=== PATIENT | female | born 1985 | race Caucasian/White ===

== ENCOUNTER 2024-09-12 10:19 | Day surgery (SDC) | payer OTHER, SELFPAY ==
[2024-09-12] VITALS (14 sets, daily range): BP systolic 108–146; BP diastolic 69–99; BMI 42.0
--- NOTE | 2024-09-12 06:59 | ED.GENMED ---
History of Present Illness
General
Chief Complaint: Abdominal Pain
Source: patient
Exam Limitations: none
Time Seen by Provider: 09/12/24 06:54
History of Present Illness
History of Present Illness:
See MDM
Past History
Past History
ED Past Medical History: Other (Previous cleft palate surgery )
ED Past Surgical History: None
Social History
Tobacco: Non-smoker
Alcohol: Occasional
Personal: Single
Living: alone
Employment: Employed (desk work)
Family History
Family History: Other (Melanoma )
Phy Exam
Physical Exam
Physical Exam:
See MDM
Course
Orders/Labs/Results
Orders:
Orders
09/12/24 06:49
IV Insert/Care/Rem.- Treatment PRN
Test Result ONCE
09/12/24 06:57
Complete Blood Count/With Diff Urgent
Comprehensive Metabolic Panel Urgent
HCG, Serum Qualitative Screen Urgent
Comment: Notify provider if positive test present
Lipase Urgent
09/12/24 06:58
0.9% Sodium Chloride 1000 ml [Nss] 1,000 ml IV BOLUS
Ketorolac [Toradol] 30 mg IV NOW STA
Ondansetron Injectable [Zofran] 4 mg IV NOW STA
09/12/24 06:59
US Abdomen Complete/Upper Urgent
Comment:
Reason For Exam: RUQ pain
09/12/24 08:17
Consult Surgery [SURGICAL CONSULT] Urgent
Consulting Provider: Jossue Guadarrama
Was physician already notified: Yes
09/12/24 08:39
Zosyn 3.375 grams IVPB NOW Piperacillin/Tazo 3.375 Gram [Zosyn] 3.375 gram in 50 ml IV NOW
Abnormal Lab Results
09/12/24
06:57
Absolute Neuts (auto) 7.2 H 10^3/uL
(1.4-6.5)
Absolute Lymphs (auto) 1.1 L 10^3/uL
(1.2-3.4)
Neutrophils % 80.9 H %
(42.2-75.2)
Lymphocytes % 12.8 L %
(20.5-51.1)
Glucose 130 H mg/dl
(70-99)
AST 230 H U/L
(14-36)
ALT 151 H U/L
(0-35)
09/12/24 06:57
09/12/24 06:57
Vital Signs
Initial and Last Documented VS:
Initial Vital Signs
Temp Pulse Resp BP Pulse Ox
97.8 F 95 20 138/99 100
09/12/24 06:29 09/12/24 06:29 09/12/24 06:29 09/12/24 06:29 09/12/24 06:29
Last Documented Vital Signs
Temp Pulse Resp BP Pulse Ox
97.8 F 95 20 138/99 100
09/12/24 06:29 09/12/24 06:29 09/12/24 06:29 09/12/24 06:29 09/12/24 06:29
MDM/Problems Addressed
Differential Diagnosis Includes:
HPI and MDM Narrative:
39-year-old female presenting with right upper quadrant abdominal pain since yesterday. Patient noticed it around 8 PM. Her last meal was at noon. This is associated with nausea. Patient states she has had stomach issues ever since the of
her child 7 months ago but states it is never been as bad as this.
On exam, she does have tenderness of the right upper quadrant. She also complains of back pain. Will give Toradol. She is not breast-feeding. Will obtain ultrasound rule out bladder pathology. If negative, will consider CT to rule out kidney
stone
Physical exam
General: Mildly uncomfortable
HEENT: protecting airway. Dry mucous membranes
Neck: appears supple
CV: No evidence of cyanosis
Resp: No accessory muscle use
Abd: Non-distended. Point tenderness to right upper. No rebound
Extremities: No deformities
Neuro: alert
Psych: Normal affect
Skin: Intact
Problems Addressed including Acute and Chronic Conditions affecting care:
1. Right upper quadrant abdominal pain
Acuity: acute
Prognosis: stable
Details: Given location of pain, will obtain ultrasound to rule out gallbladder pathology. Will give dose of Toradol.
Updates
Patient found to have elevated LFTs. No fever and white blood cell count within normal limits. Ultrasound does show stones but no gallbladder wall thickening. Will discuss case with surgery
8:40 AM surgery at bedside and consented patient for cholecystectomy. Will give dose of Zosyn
Differential Diagnosis (but not limited to): Gallstones, colitis, kidney stone
Testing considered: CT abdomen/pelvis but will obtain right upper quadrant ultrasound first
Drug therapy (if applicable): OTC meds, please see d/c instruction regarding Rx drugs
Amount and/or Complexity of Data Reviewed
Clinical info obtained from: Patient
External data reviewed: N/A
Labs I independently reviewed (but not limited to): Elevated LFTs
Radiology: Ultrasound report reviewed
Pulse Ox: not hypoxic
EKG independently reviewed: N/A
Recruiting Intern: N/A
Critical Care: N/A
Risk of Complication:
Social Determinants of health: Good social support
Discussed with other providers: General Surgeon
Escalation of Care includes Admit/Obs: Given the concern for acute calculus cholecystitis, will admit for surgical fixation
Occasional wrong word or 'sound a like' substitutions may have occurred due to the inherent limitations of voice recognition software. Read the chart carefully and recognize, using context, where substitutions have occurred.
*Critical Care Note
Total Time (30-74mins, 75-104mins- exclusive of procedures): Not Applicable
ED Attending Note
-
Portions of this chart may have been created with voice recognition software.� Occasional wrong word or��sound alike� substitutions may have occurred due to the inherent limitations of voice recognition software.
Discharge Plan
Departure
Patient Disposition: Admit
Date of Disposition: 09/12/24
Time of Disposition: 08:41
Admit to: OR
Presentation/result/management discussed w/ accepting MD/DO: General Surgeon
Discharge Problem:
Acute calculous cholecystitis
Prescriptions:
No Action
cephalexin 500 MG capsule
500 mg PO QID Qty: 40 0RF
cyclobenzaprine 10 MG tablet
10 mg PO TIDPRN PRN (Reason: back spasms) Qty: 30 0RF
ibuprofen 600 MG tablet
600 mg PO TIDPRN PRN (Reason: pain) Qty: 30 0RF
Referrals:
UNKNOWN - PT DOES,NOT KNOW [Family Provider] -
Interventions
Interventions:
*Risk Screen - Suicide Last Done: 09/12/24 06:29
*General Assessment Last Done: 09/12/24 07:27
*Neglect/Abuse Screening Last Done: 09/12/24 07:27
ED- Fall Risk Assessment Last Done: 09/12/24 07:27
*ED COVID-19 Vaccine History Last Done: 09/12/24 07:27
SC-Qdsrae-[facility] Assessment Last Done: 09/12/24 07:27
Discharge Date and Time
Print Language: MARSHALLESE
[2024-09-12] MEDS: NSS 1000 IV (07:02)
[2024-09-12] MEDS: ZOFRAN 4 MG IV (07:04)
[2024-09-12] MEDS: TORADOL 30 MG IV (07:05)
[2024-09-12 07:18] LABS: % Basophils 0.5 % (0-2); % Eosinophils 0.2 % (0-6); % Immature Granulocytes 0.5 % (0-0.5); % Lymphocytes 12.8 % (20.5-51.1); % Monocytes 5.1 % (1.7-9.3); % Neutrophils 80.9 % (42.2-75.2); Absolute Lymphocytes 1.1 10^3/uL (1.2-3.4); Absolute Monocytes 0.5 10^3/uL (0.1-0.6); Absolute Neutrophils 7.2 10^3/uL (1.4-6.5); Hemoglobin 12.9 g/dL (12.0-16.0); Mean Corp Hgb Conc. 33.1 g/dL (33.0-37.0); Mean Corpuscular Hgb 28.5 pg (27.0-31.0); Mean Corpuscular Volume 86.3 fL (81.0-99.0); Nucleated Red Blood Cells % 0 %; Platelet Count 388 10^3/uL (130-400); Red Blood Cell Count 4.52 10^6/uL (4.20-5.40); Red Cell Dist. Width 13.3 % (11.5-14.5); White Blood Cell Count 8.9 10^3/uL (4.8-10.8)
[2024-09-12 07:21] LABS: HCG, Serum Qualitative Screen Negative
[2024-09-12 07:27] LABS: ALT (SGPT) 151 U/L (0-35); AST (SGOT) 230 U/L (14-36); Albumin 4.7 g/dl (3.5-5.0); Alkaline Phosphatase 70 U/L (38-126); Blood Urea Nitrogen 12 mg/dl (7-17); Calcium 9.6 mg/dl (8.4-10.2); Carbon Dioxide 23 mmol/L (22-30); Chloride 106 mmol/L (98-107); Glucose 130 mg/dl (70-99); Lipase 63 U/L (23-300); Potassium 4.6 mmol/L (3.5-5.1); Sodium 142 mmol/L (135-145); Total Protein 7.4 g/dl (6.3-8.2); eGFR > 60.00
--- NOTE | 2024-09-12 08:24 | HPS.HSE ---
Family Physician
<ARTUR Almaguer - Last Filed: 09/12/24 08:34>
-
Family Physician: NOT KNOW UNKNOWN - PT DOES
Chief Complaint
<ARTUR Almaguer - Last Filed: 09/12/24 08:34>
-
RUQ pain
History of Present Illness
Ms Mcqueen is a 39 yo female with a h/o x3 who presents with RUQ pain which began around 8pm last night and persisted through the night accompanied by nausea and vomiting. She notes that over the past 6 months or so, she has had similar
episodes also accompanied by loose acholic stools but they usually resolved over the course of a few hours unlike this current episode. She denies jaundice with these prior episodes. On exam, the RUQ is tender to light palpation which she notes was
worse during the US done in the ED. She reports improvement in pain since receiving analgesics in the ED but notes the pain is still present in her back. She denies active nausea. She denies nausea or vomiting.
Medical History
<ARTUR Almaguer - Last Filed: 09/12/24 08:34>
Past Medical History
Past Medical History: Reports None
Past Surgical History: Reports (x3)
Social History
Tobacco: Non-smoker
Alcohol: None
Family History
Family History: Not pertinent
Allergies / Home Medications
Allergies reflects when Allergies were last updated in [facility].
Home Medications with original date entered in [facility]
Allergy/Medication List:
Patient Allergies
Allergy/AdvReac Type Severity Reaction Status Date / Time
No Known Allergies Allergy Verified 09/12/24 06:28
Not on any home meds
Review of Systems
<ARTUR Almaguer - Last Filed: 09/12/24 08:34>
-
History Source: Patient
A 12 point ROS was completed and negative except as noted: Yes
Physical Exam
<ARTUR Almaguer - Last Filed: 09/12/24 08:34>
Vital Signs
Vital Signs
Temp Pulse Resp BP Pulse Ox
97.8 F 95 20 138/99 100
09/12/24 06:29 09/12/24 06:29 09/12/24 06:29 09/12/24 06:29 09/12/24 06:29
Physical Exam
General: Well Developed and No Apparent Distress
HEENT: Moist mucous membranes
Respiratory: Non Labored Respirations
GI: Soft, Non Distended and Tender (RUQ (+cornejo's))
Skin: Warm and Dry
Neuro: Awake, Alert and AO x 3
Psych: Calm
Laboratory Results
<ARTUR Almaguer - Last Filed: 09/12/24 08:34>
-
09/12/24 06:57
09/12/24 06:57
Laboratory Results
Total Bilirubin 1.0 mg/dl (0.2-1.3) 09/12/24 06:57
AST 230 U/L (14-36) H 09/12/24 06:57
ALT 151 U/L (0-35) H 09/12/24 06:57
Alkaline Phosphatase 70 U/L (38-126) 09/12/24 06:57
Lipase 63 U/L (23-300) 09/12/24 06:57
Data Reviewed
<ARTUR Almaguer - Last Filed: 09/12/24 08:34>
-
Ultrasound: Image Personally Visualized and interpreted (Relative prominent size gallbladder containing stones, without wall thickening. Patient reported pain during US imaging.), Report Reviewed by me, Discussed with Physician, Discussed with
Patient and Discussed with Family
Lab Data: Labs Reviewed by me, Discussed with Physician and Discussed with Patient
Old Records: Reviewed
Impression/Plan
<ARTUR Almaguer - Last Filed: 09/12/24 08:34>
-
IMPRESSION:
39 yo female with symptoms of biliary colic over the past 6 months presenting with persistent RUQ pain with n/v. US imaging with cholelithiasis although no wall thickening noted. RUQ remains tender on exam raising concern for acute calculous
cholecystitis. AFVSS. No leukocytosis. LFT's WNL.
PLAN:
Keep NPO
Start ABX with IV Zosyn
IVF while NPO
Plan OR tentatively later today for lap doyle
SCDs for VTE ppx
<Jossue Guadarrama MD - Last Filed: 09/12/24 08:48>
-
IMPRESSION:
39 yo female with symptoms of biliary colic over the past 6 months presenting with persistent RUQ pain with n/v. US imaging with cholelithiasis although no wall thickening noted. RUQ remains tender on exam raising concern for acute calculous
cholecystitis. AFVSS. No leukocytosis. LFT's WNL.
PLAN:
Keep NPO
Start ABX with IV Zosyn
IVF while NPO
Plan OR tentatively later today for lap doyle
SCDs for VTE ppx
I saw and examined the patient independently.
The Settlement Technician's note was reviewed and I agree with the note, assessment and plan except where noted below.
Comment: This is a 39-year-old female 7 months who presents with 6-month history of postprandial right upper quadrant pain. Typically intermittent however her episode that began yesterday has been consistent and progressively worsening.
The patient denies Fever, Chest Pain, Shortness Of Breath, Nausea, Vomiting, changes in urinary and bowel habits, unintentional weight loss, jaundice, icterus, but does endorse occasional acholic stools.
Will plan for a laparoscopic cholecystectomy in the OR today.
Admit to general surgery
N.p.o., IV fluids, IV antibiotics.
Possible discharge home later today versus tomorrow pending clinical course.
Risks/Benefits/Alternatives, expected postoperative course and possible complications (bleeding, infection, injury to surrounding structures, acute/chronic pain) discussed at length. Patient wishes to proceed with surgery. All questions answered.
Consent obtained.
I spent 60 minutes in total for the care of this patient today including direct patient care and counseling, reviewing labs, imaging, coordination of care, as well as documentation.
[2024-09-12] MEDS: ZOSYN 50 IV ×3 (08:53→20:12)
--- NOTE | 2024-09-12 09:07 | W.SUR.PREOP ---
Pre-Operative Surgical Note
-
I have examined this patient prior to the performance of the scheduled procedure.
The patient's condition is unchanged from the time of the current History and
Physical and the patient is able to undergo the scheduled procedure.
--- NOTE | 2024-09-12 12:16 | W.IMMPOSTOP ---
Surgical Immed Post Op Note
-
Primary Surgeon: Jossue Guadarrama MD
Assisting Surgeon: None
Pre-op Diagnosis: Acute cholecystitis
Post-op Diagnosis: Acute cholecystitis, fatty liver disease
Procedure Performed:
1. Laparoscopic cholecystectomy with cholangiogram
2. Liver biopsy
Anesthesia Type: General
Specimen / Cultures:
Gallbladder and contents, liver biopsy
Estimated Blood Loss: 11 cc
Complications: None
Operative Findings: Distended gallbladder with minimal flimsy adhesions over the infundibulum. Critical view of safety obtained, dilated cystic duct which was ligated proximally using an 0 silk suture before a distal duct anatomy. The dilated
cystic duct was filled with several stones 13 of which were removed prior to an attempted cholangiogram which had to be aborted due to technical difficulty with the patient bed, however we were able to flush the duct without any issue. The duct
was then ligated with a clip followed by a 0 PDS Endoloop. The gallbladder and all 13 stones were removed. A liver biopsy of segment 4B was taken due to grossly fatty liver disease. The biopsy site was cauterized and a small piece of Surgicel was
placed to assist with hemostasis.
POST OP PLAN:
Imaging: None
Labs: Routine AM, if there is any concern for elevated bilirubin or liver enzymes may consider an MRCP to rule out choledocholithiasis.
Diet: Advance to low-fat as tolerated
Analgesia: Tylenol 650mg q6 Yusef, Mariajose 5mg q6 PRN, Dilaudid 0.5mg q2h PRN
Neuro/vascular checks: q4h
AC/AP: Hold Therapeutic AC, Ok for DVT PPx
Activity: Ad Lara
Wound/Incisions/Drains: Routine
Abx: will continue while admitted
Dispo: RNF, anticipate discharge home tomorrow
--- NOTE | 2024-09-12 12:21 | OR.RPT ---
Operative Report
Operative Report
Patient Name: Rani Mcqueen
: 1985
Date of Operation: 09/12/2024
Preoperative Diagnosis: Acute cholecystitis
Postoperative Diagnosis: Acute cholecystitis, fatty liver disease
Procedure(s):
1. Laparoscopic Cholecystectomy with Cholangiogram
2. Liver biopsy
Surgeon(s):
Dr. Guadarrama
Product Safety Expert(s):
JANI Connell
Anesthesia: General
Estimated Blood Loss: 11 cc
Urine Output: None
Drains/Lines/Implants: None
Specimens:
1. Gallbladder and contents
2. Liver biopsy
HPI/Surgical Indications:
This is a 39-year-old female who presents with a 1 day history of right upper quadrant abdominal pain, in the setting of similar pain over the past several months since giving . Exam, labs and imaging are consistent with early acute
cholecystitis. Risks/Benefits/Alternatives were discussed at length, and the patient agreed to proceed with surgery.
Operative Findings:
The patient had a significant diastases recti, which altered our port placement slightly. Distended gallbladder with minimal flimsy adhesions over the infundibulum. Critical view of safety obtained, dilated cystic duct which was ligated proximally
using an 0 silk suture before a distal duct anatomy. The dilated cystic duct was filled with several stones 13 of which were removed prior to an attempted cholangiogram which had to be aborted due to technical difficulty with the patient bed,
however we were able to flush the duct without any issue. The duct was then ligated with a clip followed by a 0 PDS Endoloop. The gallbladder and all 13 stones were removed. A liver biopsy of segment 4B was taken due to grossly fatty liver
disease. The biopsy site was cauterized and a small piece of Surgicel was placed to assist with hemostasis.
Procedure Description:
The patient was brought to the Operating Room and placed in the supine position with arms out and on a footboard. Following uneventful induction of general endotracheal anesthesia, an orogastric tube was placed. The abdomen was prepped and draped
in the usual sterile fashion. A timeout was performed confirming the procedure, consent, and that IV antibiotics were infused and sequential compression devices were confirmed to be on. The abdomen was entered using a left subcostal Veress technique
of which required a single pass followed by a 5 mm right upper quadrant Optiview trocar taking care to come lateral enough to go through muscle and avoid her diastases recti. Pneumoperitoneum to 12 mmHg pressure was obtained without difficulty and
we confirmed that no injury had occurred during our entry. The patient was positioned in reverse Trendelenberg and rotated with the right side up slightly. Two 5mm trocars were then placed along the right subcostal margin, followed by a 12 mm port
in the epigastrium. The gallbladder was noticeably distended and a locking grasping forceps was placed on the fundus of the gallbladder where it was then retracted cephalad and to the right. Using appropriate grasping instruments, the peritoneum
overlying the triangle of Calot was incised and extended superiorly on both the anterior and posterior gallbladder goncalves. The infundibulum was dissected off the cystic plate. The cystic triangle was dissected until a critical view of safety was
achieved. The cystic artery was medialized, dissected and controlled with 2 proximal clips and 1 distal and divided. The cystic duct/gallbladder junction in turn was identified, dissected circumferentially but was notably dilated so controlled with
a 0 silk tie. A ductotomy was made but the dilated cystic duct was filled with multiple small dark brown gallstones. 13 stones were removed and the duct appeared empty. A cholangiocatheter on an Mccray clamp was inserted into the cystic duct. A
C-arm was draped and brought into the field. An intra-operative cholangiogram was attempted however we discovered that the operating room table was malpositioned and as it could not slide the bed up or down we were unable to get a good view of the
relevant anatomy with the C-arm. As such the cholangiogram was aborted. The cholangiocatheter was removed and we once again carefully milked the cystic duct to ensure there was no stones left behind. There was some backflow of bile which was
reassuring. The distal cystic duct was then clipped proximally and distally and divided. The cystic duct stump was then ligated with a 0 PDS Endoloop. After ensuring both the artery and duct were divided, the gallbladder was freed from the liver
using electrocautery. There was no spillage of bile or stones. The gallbladder bed was inspected and excellent hemostasis was obtained. We then turned our attention to the liver which was notably enlarged and impeded with our retraction of the
gallbladder due to her fatty liver disease. A self pay representative sample of the liver was biopsied from segment 4B and hemostasis was achieved with the help of electrocautery and a 2 x 3 inch piece of Surgicel which was left in place. The gallbladder,
all 13 gallstones and the liver biopsy were extracted through the 12 mm trocar site using an endocatch bag. The abdomen was again irrigated and excellent hemostasis was assured. The 12 mm trocar site was closed using 0 PDS suture. All remaining
trocars were then removed and the pneumoperitoneum was evacuated. All trocar sites were closed at the skin level using 4-0 Monocryl followed by Dermabond. Overall, the patient tolerated the procedure well and was taken to the Recovery Room
postoperatively in stable condition.
I was the attending physician and performed the procedure with assistance from the WELT TREATER student above. I was present for all portions of the case.
Jossue Guadarrama MD
--- NOTE | 2024-09-12 13:39 | PTCARENOTE ---
Pt arrived to 2S in bed. Full assessment completed. Pt tearful, therapeutic communication utilized. Abdominal lap sites C/D/I, glued and TARAN. Pt instructed on low fat diet and to ring for assistance getting OOB. Bed locked and in the lowest
position, safety maintained. Oriented to room and call warner, spouse at bedside.
[2024-09-12] MEDS: TYLENOL 650 MG PO (21:32)
[2024-09-13] MEDS: ZOSYN 50 IV ×2 (02:50→08:15)
[2024-09-13 03:02] VITALS: BP 103/67
[2024-09-13 05:17] LABS: Hematocrit 35.1 % (37.0-47.0); Hemoglobin 11.4 g/dL (12.0-16.0); Mean Corp Hgb Conc. 32.5 g/dL (33.0-37.0); Mean Corpuscular Hgb 28.6 pg (27.0-31.0); Mean Corpuscular Volume 88.2 fL (81.0-99.0); Mean Platelet Volume 10.2 fL (7.4-10.4); Platelet Count 330 10^3/uL (130-400); Red Blood Cell Count 3.98 10^6/uL (4.20-5.40); Red Cell Dist. Width 13.2 % (11.5-14.5); White Blood Cell Count 7.7 10^3/uL (4.8-10.8)
[2024-09-13 05:55] LABS: ALT (SGPT) 741 U/L (0-35); AST (SGOT) 495 U/L (14-36); Albumin 3.7 g/dl (3.5-5.0); Alkaline Phosphatase 78 U/L (38-126); Blood Urea Nitrogen 11 mg/dl (7-17); Calcium 9.1 mg/dl (8.4-10.2); Carbon Dioxide 23 mmol/L (22-30); Chloride 108 mmol/L (98-107); Estimated Creatinine Clearance > 125 ml/min; Glucose 124 mg/dl (70-99); Potassium 4.4 mmol/L (3.5-5.1); Sodium 142 mmol/L (135-145); Total Bilirubin 0.9 mg/dl (0.2-1.3); Total Protein 6.2 g/dl (6.3-8.2); eGFR > 60.00
[2024-09-13 07:41] VITALS: BP 112/68
[2024-09-13] MEDS: TYLENOL 650 MG PO (08:15)
--- NOTE | 2024-09-13 08:23 | W.PN.GS2 ---
Today's Communication / Plan
-
dispo planning
Assessment / Plan
-
39 yo female who presented with ACC now POD #1 lap doyle with cholangiogram and liver biopsy
AFVSS
Transaminitis noted, likely reactive given manipulation of liver and bx, bilirubin normal
Tolerating diet
Pre op pain resolved, some incisional discomfort
--continue regular diet
--analgesics prn
--discharge to home
Subjective Data
-
Date of Service: September 13, 2024
Patient seen and examined at bedside with Dr. Philip. Hopper n/v. Tolerating diet. Some soreness but pain improved.
Objective Data
-
Intake and Output
09/12/24 09/13/24 09/14/24
06:59 06:59 06:59
Intake Total 1217 / 1217
Balance 1217 / 1217
Intake:
Oral fluids 892 / 892
IV fluids (Total) 125 / 125
norm 125 / 125
IV piggybacks 200 / 200
Other:
Number of approximated MODERATE 3
amounts of urine
Vital Signs
Temp Pulse Resp BP Pulse Ox
97.9 F 78 16 112/68 97
09/13/24 07:41 09/13/24 07:41 09/13/24 07:41 09/13/24 07:41 09/13/24 07:41
Lab Results
09/13/24 04:09
09/13/24 04:09
Calcium 9.1 mg/dl (8.4-10.2) 09/13/24 04:09
Total Bilirubin 0.9 mg/dl (0.2-1.3) 09/13/24 04:09
AST 495 U/L (14-36) H 09/13/24 04:09
ALT 741 U/L (0-35) H* 09/13/24 04:09
Alkaline Phosphatase 78 U/L (38-126) 09/13/24 04:09
Total Protein 6.2 g/dl (6.3-8.2) L 09/13/24 04:09
Albumin 3.7 g/dl (3.5-5.0) 09/13/24 04:09
Physical Exam
-
NAD
ABD soft, nd, mild tenderness to upper abdominal incision
Incisions clear, dry, with intact glue
--- NOTE | 2024-09-13 16:46 | W.DS.TRANS ---
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
-
Discharge Instructions:
Discharge Diagnosis/Procedures Acute cholecystitis. Laparoscopic
cholecystectomy with cholangiogram and liver
biopsy
Diet Low Fat
Activity No strenuous activity
Driving Restrictions As prior to admission
Bathing Restrictions OK to Shower
Instructions:
Stand-Alone Forms:
Changes to Home Medications: No
Discharge Medications:
DC Medications w/original date entered in [facility]
acetaminophen 325 mg tablet 650 mg (2 x 325 mg) PO Q6HPRN PRN mild pain #14 tabs 09/12/24
ibuprofen 600 mg tablet 600 mg PO Q6H PRN pain #14 tabs 09/12/24
Home Medication Changes
Pending Results: No
== END 2024-09-13 09:37 | disposition home or self-care (01) ==
LOC: SDS 10:19
PROVIDERS: Registered Nurse; ATTENDING PHYSICIAN Surgery; EMERGENCY PHYSICIAN Student in an Organized Health Care Education/Training Program
DX: K80.00 Calculus of gallbladder with acute cholecystitis without obstruction (principal); K75.81 Nonalcoholic steatohepatitis (NASH); R10.11 Right upper quadrant pain
CPT/HCPCS: 47379; 47563; 88304; 88307; 76700; 80053; 83690; 84703; 85025; 85027; 88313; 96361; 96365; 96375; 99285